=== PATIENT | male | born 1955 | race Caucasian/White ===

== ENCOUNTER 2018-09-17 14:10 | Inpatient (IN) | payer MEDICAID ==
[2018-09-17] MEDS ORDERED: Piperacillin/Tazobactam 3.375 GM in Sodium Chloride 0.9% 100 ML IV ONE (14:45)
[2018-09-17] MEDS: HYDROmorphone 1 MG/ML Syringe IVPUSH PRN ×2 (15:18→19:53)
[2018-09-17] MEDS: Acetaminophen/HYDROcodone 325-5 MG Tab PO PRN (15:19)
[2018-09-17 15:33] LABS: CHLORIDE,CL 96 mmol/L (98-107); SODIUM,NA 133 mmol/L (136-145)
[2018-09-17 15:39] LABS: ANION GAP 19.4 mmol/L (10-20)
[2018-09-17] MEDS ORDERED: Iopamidol 612 MG/ML 100 ML Bottle IVPUSH ONE (16:18)
[2018-09-17] MEDS: Insulin Lispro 100 Unit/ML 3 ML KwikPen SUBCUT SCH ×2 (16:21→17:18)
--- NOTE | 2018-09-17 18:37 | CT ---
[id number] CT/CTA Lower Extremity Left Exam: CTA Lower Extremity Left Clinical Data: CELLULITIS. POSSIBLE OSTEOMYELITIS. POSSIBLE NECROTIZING FASCIITIS COMPARISON: NO PREVIOUS SIMILAR EXAM IS AVAILABLE FINDINGS: There is evidence of diffuse soft tissue subcutaneous edema. There is no abscess. There is no imaging evidence of necrotizing fasciitis or osteomyelitis. There is no evidence also of high-grade arterial abnormality in the left lower extremity. The exam was limited to the left lower extremity not including the right side. IMPRESSION: CELLULITIS ONLY. NO ABSCESS. NO IMAGING EVIDENCE OF OSTEOMYELITIS NO ACUTE ARTERIAL ABNORMALITY. POSSIBILITY OF OSTEOMA IS NOT EXCLUDED ON IMAGING ALONE. David Adams MD 09/17/18 [id number] Thank you for allowing us to participate in the care of your patient.
[2018-09-17] MEDS: VANCOMYCIN IV SCH (19:00)
[2018-09-17] MEDS: SODIUM CHLORIDE 0.9% IV SCH (19:00)
[2018-09-17] MEDS: Insulin Glargine,Human Rec. Analog 100 Units/ML 3 ML Pen SUBCUT SCH (20:03)
[2018-09-17] MEDS ORDERED: Lactated Ringers 1,000 ML IV SCH (20:30)
[2018-09-17] MEDS: Piperacillin/Tazobactam 3.375 GM in Sodium Chloride 0.9% 100 ML IV SCH (21:16)
[2018-09-18] MEDS: Ondansetron 4 MG/2 ML SDV IV PRN ×2 (00:18→11:24)
[2018-09-18] MEDS: Acetaminophen 325 MG Tab PO PRN (01:31)
[2018-09-18] MEDS: Piperacillin/Tazobactam 3.375 GM in Sodium Chloride 0.9% 100 ML IV SCH ×3 (05:06→21:16)
[2018-09-18] MEDS: HYDROmorphone 1 MG/ML Syringe IVPUSH PRN ×4 (05:24→23:01)
[2018-09-18] MEDS: SODIUM CHLORIDE 0.9% IV SCH ×2 (06:46→18:41)
[2018-09-18] MEDS: VANCOMYCIN IV SCH ×2 (06:46→18:41)
[2018-09-18 07:04] LABS: ANION GAP 15.6 mmol/L (10-20); CHLORIDE,CL 99 mmol/L (98-107); SODIUM,NA 134 mmol/L (136-145)
[2018-09-18] MEDS: Acetaminophen/HYDROcodone 325-5 MG Tab PO PRN (08:03)
[2018-09-18] MEDS: Loratadine 10 MG Tab PO SCH (08:03)
[2018-09-18] MEDS: Insulin Lispro 100 Unit/ML 3 ML KwikPen SUBCUT SCH ×5 (08:03→20:25)
[2018-09-18] MEDS: Aspirin 81 MG Tab.EC PO SCH (08:03)
[2018-09-18] MEDS: Lisinopril 5 MG Tab PO SCH (08:03)
[2018-09-18] MEDS: Insulin Glargine,Human Rec. Analog 100 Units/ML 3 ML Pen SUBCUT SCH ×2 (08:04→23:00)
[2018-09-18] MEDS ORDERED: Acetaminophen/HYDROcodone 325-10 MG Tab PO PRN (08:35)
--- NOTE | 2018-09-18 10:05 | PCM.HP ---
H&P History of Present Illness - General Date of Service: 09/17/18 Admit Problem/Dx: Admission Diagnosis/Problem Admission Diagnosis/Problem Cellulitis Source of Information: Patient, Old Records - History of Present Illness Initial Comments - Free Text/Narative: Cellulitis of left lower extremity Type 1 DM with polyneuropathy Seizures LRINE Score for Necrotizing Soft Tissue Infection from [employer] on 09/17/2018 RESULT SUMMARY: 8 points Risk for Necrotizing Soft Tissue Infection. Scores of 8 had a PPV of 93.4% for NSTIs. Work-up as above INPUTS: C-reactive protein > 4 = ?15 mg/dL (150 mg/L) White blood cell count (x10,000/L) > 0 = <15 Hemoglobin (g/dL) > 1 = 11-13.5 Sodium (mEq/L) > 2 = <135 Creatinine > 0 = ?1.6 mg/dL (141 mol/L) Glucose > 1 = >180 mg/dL (10 mmol/L) Plan:Moderately severe cellulitis in insulin-dependent diabetic. Appears to be worsening after 24 hours of Rocephin. I recommend inpatient care for broadening antibiotics and pain control along with monitoring sugars and fluid status. He is having some systemic symptoms, vital signs otherwise not grossly septic. Admit for empiric vanc and zoysn while BC pending. Start IV LR. Lovenox prophylaixs. CT leg given higher risk soft tissue score but CK, lactate normal and nothing grossly necrotic by exam. Discussed case with PCP. Follow Up: No disposition on file. HPI / History / ROS 1 day REcheck cellulitis. Given rocephin x1. Patient in worse pain today than yesterday. LEFT lower leg. Sharp, burning pain. Pt feels nauseated but no vomiting. Some chills but no abdullahi fevers. Sugars around 200, DM1. He states leg had been swollen and red for the past week prior to yesterday. Denies any recent injury or breaks in the skin that he knows of. He describes an injury where he hit it eight months ago. Nonsmoker. Family history is fairly benign. No known drug allergies. No recent antibiotics besides above Rocephin. Medications w MedicationsPriortoVisit w Outpatient Medications Prior to Visit Medication Sig Dispense Refill HYDROcodone-acetaminophen (NORCO) 5-325 mg tablet Take 1-2 tablets by mouth every 6 hours as needed for severe pain 4 tablet 0 carBAMazepine (TEGRETOL XR) 400 mg SR tablet (12 hr) TAKE 1 TABLET (400 MG TOTAL) BY MOUTH EVERY NIGHT AT BEDTIME 90 tablet 4 insulin lispro (HUMALOG) subcutaneous injection (vial) INJECT 22 UNITS SUBCUTANEOUSLY 2 TIMES A DAY WITH MEALS 2 vial 11 lisinopril (PRINIVIL, ZESTRIL) 5 mg tablet TAKE 1 TABLET BY MOUTH EACH EVENING (Patient taking differently: take 0.5 tab daily) 90 tablet 3 B-D INS SYR ULTRAFINE .3CC/30G 30G X 1/2" 0.3 ML USE DIRECTED 4 TIMES A DAY WITH INSULIN INJECTIONS E11.9 300 syringe 4 LANTUS subcutaneous injection (vial) INJECT 22 UNITS SUBCUTANEOUSLY 2 TIMES A DAY 10 mL 11 blood glucose test strip (GIUSEPPE CONTOUR NEXT) STRP Use to test blood sugar four times a day DX: E 10.42 Insulin Dependent 100 each 11 lancets (MICROLET) Use to test blood sugar four times a day DX: E 10.42 Insulin Dependent 1 box 0 aspirin 81 mg enteric coated tablet Take 1 tablet (81 mg) by mouth 1 time per day 30 tablet 0 cetirizine (ZYRTEC) 10 mg tablet Take 10 mg by mouth 1 time per day No facility-administered medications prior to visit. Allergies No Known Allergies Problem List w w w Patient Active Problem List l Diagnosis w w Type 1 DM with polyneuropathy w w Major depressive disorder w w Seizures w w Hypertension w w Encounter for long-term (current) use of other medications w w Allergic rhinitis w w Diabetic neuropathy w w Plantar fasciitis of left foot w w Herniation of cervical intervertebral disc with radiculopathy w w Cervical spondylosis w w Radiculopathy of arm w w Cervical stenosis of spinal canal w w Cervical radiculopathy at C8 w w DDD (degenerative disc disease), cervical w w Cervical radiculopathy w w S/P cervical spinal fusion w w Refusal of statin medication at discharge w w Ulnar neuropathy of left upper extremity Medical/Surgical/Family/Social History w PastMedicalHistory w Past Medical History: Diagnosis Date Allergic state DDD (degenerative disc disease), cervical Diabetes mellitus (HCC) Hypertension Plantar fasciitis of left foot Seizures w PastSurgicalHistory w Past Surgical History: Procedure Laterality Date CERVICAL FUSION N/A 08/03/2016 Procedure: C6-T1 ANTERIOR CERVICAL DISCECTOMY &FUSION;; Surgeon: Francisco J Webber MD NECK SURGERY 2005 SURGERY removal of a mass in the mid back done at [facility] w FamilyHistory w Family History Problem Relation Age of Onset Chronic Obstructive Pulmonary Disease Father Negative Sister Not otherwise listed - Cancer Sister OPERATIONS SUPPORT REPRESENTATIVE Negative Half Sister w SocialHistory w Social History Socioeconomic History Marital status: Spouse name: Not on file Number of children: 1 Years of education: Not on file Highest education level: Not on file Occupational History 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 Fever:? HENT: Negative fortrouble swallowing. Respiratory: Positive forcough. Negative forshortness of breath. Cardiovascular: Negative forchest pain. Gastrointestinal: Positive fornausea. Negative forabdominal pain,blood in stool,constipationand diarrhea. Endocrine: Negative forpolydipsia,polyphagiaand polyuria. Genitourinary: Negative fordecreased urine volumeand dysuria. Physical / Results BP 150/66 Pulse 86 Temp 99.5 F (37.5 C) (Tympanic) Wt 103 kg (227 lb) SpO2 98% BMI 30.79 kg/m2|| Physical Exam Constitutional: He appearswell-developedand well-nourished.No distress. HENT: Mouth/Throat:Oropharynx is clear and moist. Cardiovascular:Normal rateand regular rhythm. Pulmonary/Chest:Effort normaland breath sounds normal. Abdominal:Soft. Musculoskeletal: Diffuse erythema warmth and swelling and tenderness that extends from the medial ankle up to the anterior haider just below the knee. Has not extended beyond boundaries from yesterday. It is not hard. There are no bullae seen. At the lateral portion above the ankle there is a 1 inch open area was some clear serous drainage. No pustules appreciated. He can move it his ankle and toes without any gross discomfort. Skin: He isdiaphoretic. There ispallor. Left Lower Leg Pain Score (Numeric/FACES): 5 - Related Data Allergies/Adverse Reactions: Allergies Allergy/AdvReac Type Severity Reaction Status Date / Time No Known Drug Allergies Allergy Other Verified 04/14/15 20:47 Home Medications: Home Meds Insulin Glarg,Human.Rec.Analog [LantUS] 22 units SQ BID 03/18/15 [History] Insulin Lispro [Humalog] 22 units SUBCUT BID 03/18/15 [History] Lisinopril [Prinivil] 5 mg PO DAILY 03/18/15 [History] carBAMazepine [Carbamazepine ER] 400 mg PO DAILY 03/18/15 [History] Hydrocodone/Acetaminophen [Hydrocodon-Acetaminophn 10-325] 1 - 2 each PO Q6H PRN 04/14/15 [History] Aspirin [Ecotrin] 81 mg PO DAILY 09/17/18 [History] Cetirizine [ZyrTEC] 1 tab PO DAILY 09/17/18 [History] Past Medical History HEENT History: Reports: Allergic Rhinitis Cardiovascular History: Reports: Hypertension Musculoskeletal History: Reports: Back Pain, Chronic, Other (See Below) Other Musculoskeletal History: Plantar fasciitis of left foot Neurological History: Reports: Seizure, Other (See Below) Other Neuro History: Radiculopathy at C8. S/P spinal fusion. Ulnar neuropathy of LUE. Radiculopathy of arm. Cervical spondylosis Psychiatric History: Reports: Other (See Below) Other Psychiatric History: Major Depressive Disorder Endocrine/Metabolic History: Reports: Diabetes, Type I, Obesity/BMI 30+ - Infectious Disease History Infectious Disease History: Reports: Chicken Pox - Past Surgical History Cardiovascular Surgical History: Reports: None Endocrine Surgical History: Reports: None Neurological Surgical History: Reports: Spinal Fusion Social & Family History - Family History Family Medical History: Noncontributory - Tobacco Use Smoking Status *Q: Never Smoker Second Hand Smoke Exposure: No - Caffeine Use Caffeine Use: Reports: Coffee - Recreational Drug Use Recreational Drug Use: No H&P Review of Systems - Review of Systems: Review Of Systems: See Below Exam - Exam Exam: See Below - Vital Signs Vital Signs: Last Vital Signs Temp 38.1 C 09/18/18 05:11 Pulse 85 09/18/18 05:11 Resp 18 09/18/18 05:11 BP 141/77 H 09/18/18 08:03 Pulse Ox 95 09/18/18 05:11 Weight: 101.69 kg - Patient Data Lab Results Last 24 hrs: Laboratory Results - last 24 hr 09/17/18 09/17/18 09/17/18 Range/Units 14:50 14:50 14:50 WBC 14.4 H (4.0-10.0) x10^3/uL RBC 3.97 L (4.5-6.0) x10^6/uL Hgb 13.2 L (14.0-18.0) g/dL Hct 38.3 L (40.0-52.0) % MCV 96.5 H (78.0-93.0) fL MCH 33.2 H (26.0-32.0) pg MCHC 34.5 (32.0-36.0) g/dL RDW Coeff of Alex 11.4 (10.0-15.0) % Plt Count 371 (130-400) x10^3/uL Neut % (Auto) 82.5 H (50.0-80.0) % Lymph % (Auto) 9.5 L (25.0-50.0) % [place] % (Auto) 7.5 (2.0-11.0) % Eos % (Auto) 0.3 (0.0-4.0) % Baso % (Auto) 0.2 (0.2-1.2) % Sodium 133 L (136-145) mmol/L Potassium 4.4 (3.5-5.1) mmol/L Chloride 96 L (98-107) mmol/L Carbon Dioxide 22 (21-32) mmol/L Anion Gap 19.4 (10-20) mmol/L BUN 15 (7-18) mg/dL Creatinine 0.9 (0.70-1.30) mg/dL Est Cr Clr Drug Dosing 94.60 mL/min Estimated GFR (MDRD) > 60 Glucose 334 H (74-106) mg/dL POC Glucose (74-106) mg/dL Lactic Acid 1.7 (0.4-2.0) mmol/L Calcium 8.9 (8.5-10.1) mg/dL Corrected Calcium 10.18 H (8.5-10.1) mg/dL Total Bilirubin 0.8 (0.2-1.0) mg/dL AST 64 H (15-37) U/L ALT 189 H (16-63) U/L Alkaline Phosphatase 225 H (46-116) U/L Creatine Kinase 96 (39-308) U/L C-Reactive Protein 21.7 H (<=0.9) mg/dL Total Protein 6.6 (6.4-8.2) g/dL Albumin 2.4 L (3.4-5.0) g/dL Globulin 4.2 Albumin/Globulin Ratio 0.57 09/17/18 09/17/18 09/18/18 Range/Units 15:37 19:57 06:23 WBC 14.1 H (4.0-10.0) x10^3/uL RBC 3.84 L (4.5-6.0) x10^6/uL Hgb 12.9 L (14.0-18.0) g/dL Hct 37.6 L (40.0-52.0) % MCV 97.9 H (78.0-93.0) fL MCH 33.6 H (26.0-32.0) pg MCHC 34.3 (32.0-36.0) g/dL RDW Coeff of Alex 11.3 (10.0-15.0) % Plt Count 371 (130-400) x10^3/uL Neut % (Auto) 81.2 H (50.0-80.0) % Lymph % (Auto) 10.1 L (25.0-50.0) % [place] % (Auto) 7.9 (2.0-11.0) % Eos % (Auto) 0.6 (0.0-4.0) % Baso % (Auto) 0.2 (0.2-1.2) % Sodium (136-145) mmol/L Potassium (3.5-5.1) mmol/L Chloride (98-107) mmol/L Carbon Dioxide (21-32) mmol/L Anion Gap (10-20) mmol/L BUN (7-18) mg/dL Creatinine (0.70-1.30) mg/dL Est Cr Clr Drug Dosing mL/min Estimated GFR (MDRD) Glucose (74-106) mg/dL POC Glucose 327 H 387 H (74-106) mg/dL Lactic Acid (0.4-2.0) mmol/L Calcium (8.5-10.1) mg/dL Corrected Calcium (8.5-10.1) mg/dL Total Bilirubin (0.2-1.0) mg/dL AST (15-37) U/L ALT (16-63) U/L Alkaline Phosphatase (46-116) U/L Creatine Kinase (39-308) U/L C-Reactive Protein (<=0.9) mg/dL Total Protein (6.4-8.2) g/dL Albumin (3.4-5.0) g/dL Globulin Albumin/Globulin Ratio 09/18/18 Range/Units 06:23 WBC (4.0-10.0) x10^3/uL RBC (4.5-6.0) x10^6/uL Hgb (14.0-18.0) g/dL Hct (40.0-52.0) % MCV (78.0-93.0) fL MCH (26.0-32.0) pg MCHC (32.0-36.0) g/dL RDW Coeff of Alex (10.0-15.0) % Plt Count (130-400) x10^3/uL Neut % (Auto) (50.0-80.0) % Lymph % (Auto) (25.0-50.0) % [place] % (Auto) (2.0-11.0) % Eos % (Auto) (0.0-4.0) % Baso % (Auto) (0.2-1.2) % Sodium 134 L (136-145) mmol/L Potassium 4.6 (3.5-5.1) mmol/L Chloride 99 (98-107) mmol/L Carbon Dioxide 24 (21-32) mmol/L Anion Gap 15.6 (10-20) mmol/L BUN 16 (7-18) mg/dL Creatinine 1.0 (0.70-1.30) mg/dL Est Cr Clr Drug Dosing 85.14 mL/min Estimated GFR (MDRD) > 60 Glucose 311 H (74-106) mg/dL POC Glucose (74-106) mg/dL Lactic Acid (0.4-2.0) mmol/L Calcium 8.5 (8.5-10.1) mg/dL Corrected Calcium 9.94 (8.5-10.1) mg/dL Total Bilirubin 0.6 (0.2-1.0) mg/dL AST 29 (15-37) U/L ALT 139 H (16-63) U/L Alkaline Phosphatase 194 H (46-116) U/L Creatine Kinase (39-308) U/L C-Reactive Protein (<=0.9) mg/dL Total Protein 6.4 (6.4-8.2) g/dL Albumin 2.2 L (3.4-5.0) g/dL Globulin 4.2 Albumin/Globulin Ratio 0.52 Result Diagrams: 09/18/18 06:23 09/18/18 06:23 Problem List Initiated/Reviewed/Updated: Yes Orders Last 24hrs: Active Orders 24 hr Category Date Time Status Admission Status [Patient Status] [ADT] Routine ADT 09/17/18 14:13 Active Patient Status [ADT] Routine ADT 09/17/18 14:31 Active Blood Glucose Check, Bedside [RC] 07,11,17,20 Care 09/17/18 14:31 Active Dietary Supplements [RC] BIDMEALS Care 09/17/18 14:38 Active Oxygen Therapy [RC] PRN Care 09/17/18 14:31 Active Up With Assistance [RC] 08,20 Care 09/17/18 14:31 Active Vital Signs [RC] 06,10,14,18,22,02 Care 09/17/18 14:31 Active [place] [employer] Diet [DIET] Diet 09/17/18 Dinner Active Chest 1V Frontal [CR] Routine Exams 09/18/18 08:39 Taken CBC WITH AUTO DIFF [HEME] AM Lab 09/19/18 05:15 Ordered COMPREHENSIVE METABOLIC PN,CMP [CHEM] AM Lab 09/19/18 05:15 Ordered CULTURE BLOOD [BC] Stat Lab 09/17/18 14:50 Received CULTURE BLOOD [BC] Stat Lab 09/17/18 14:57 Received CULTURE WOUND [RM] Routine Lab 09/18/18 08:33 Received VANCOMYCIN TROUGH [CHEM] Routine Lab 09/19/18 06:00 Ordered Acetaminophen [Tylenol] Med 09/17/18 14:31 Active 650 mg PO Q4H PRN Acetaminophen/HYDROcodone [Senoia 325-10 MG] Med 09/18/18 08:35 Active 1 tab PO Q4H PRN Aspirin [Halfprin] Med 09/18/18 08:00 Active 81 mg PO DAILY Docusate Sodium/Sennosides [Senna Plus] Med 09/18/18 08:20 Active 1 tab PO BID PRN Enoxaparin [Lovenox] Med 09/18/18 20:00 Active 40 mg SUBCUT BEDTIME HYDROmorphone [Dilaudid] Med 09/18/18 08:34 Active 1 mg IVPUSH Q2H PRN Insulin Glarg,Human.Rec.Analog [LantUS Solostar] Med 09/17/18 20:00 Active 22 units SUBCUT BID Insulin Lispro [HumaLOG] Med 09/17/18 18:00 Active 22 unit SUBCUT BIDMEALS Insulin Lispro [HumaLOG] Med 09/18/18 08:35 Active 5 unit SUBCUT TIDMEALS Lisinopril [Prinivil] Med 09/18/18 08:00 Active 5 mg PO DAILY Loratadine [Claritin] Med 09/18/18 08:00 Active 10 mg PO DAILY Ondansetron [Zofran] Med 09/17/18 14:31 Active 4 mg IV Q6H PRN Piperacillin/Tazobactam [Zosyn] 3.375 gm Med 09/17/18 21:00 Active Sodium Chloride 0.9% [Normal Saline] 100 ml IV Q8H Vancomycin 1,500 mg Med 09/17/18 19:00 Active Sodium Chloride 0.9% [Normal Saline] 250 ml IV Q12H carBAMazepine [TEGretol XR] Med 09/18/18 20:00 Active 400 mg PO BEDTIME Blood Culture x2 Reflex Set [OM.PC] Stat Oth 09/17/18 14:31 Ordered Resuscitation Status Routine Resus Stat 09/17/18 14:31 Ordered Medication Orders Acetaminophen (Tylenol) 650 mg PO Q4H PRN PRN Reason: Pain (Mild 1-3)/fever Last Admin: 09/18/18 01:31 Dose: 650 mg Hydrocodone Bitart/Acetaminophen (Senoia 325-10 Mg) 1 tab PO Q4H PRN PRN Reason: Pain (moderate 4-6) Aspirin (Halfprin) 81 mg PO DAILY RUDI Last Admin: 09/18/18 08:03 Dose: 81 mg Carbamazepine (Tegretol Xr) 400 mg PO BEDTIME RUDI Enoxaparin Sodium (Lovenox) 40 mg SUBCUT BEDTIME RUDI Hydromorphone HCl (Dilaudid) 1 mg IVPUSH Q2H PRN PRN Reason: Pain (severe 7-10) Vancomycin HCl 1,500 mg/ (Sodium Chloride) 280 mls @ 167 mls/hr IV Q12H [facility] Last Admin: 09/18/18 06:46 Dose: 167 mls/hr Admin: 09/17/18 19:00 Dose: 167 mls/hr Piperacillin Sod/Tazobactam (Sod 3.375 gm/ Sodium Chloride) 100 mls @ 25 mls/ hr IV Q8H [facility] Last Admin: 09/18/18 05:06 Dose: 25 mls/hr Admin: 09/17/18 21:16 Dose: 25 mls/hr Insulin Glargine (Lantus Solostar) 22 units SUBCUT BID [facility] Last Admin: 09/18/18 08:04 Dose: 22 units Admin: 09/17/18 20:03 Dose: 22 units Insulin Human Lispro (Humalog) 22 unit SUBCUT BIDMEALS [facility] Last Admin: 09/18/18 08:03 Dose: 22 units Admin: 09/17/18 17:18 Dose: Admin: 09/17/18 16:21 Dose: 22 units Insulin Human Lispro (Humalog) 5 unit SUBCUT TIDMEALS [facility] Lisinopril (Prinivil) 5 mg PO DAILY [facility] Last Admin: 09/18/18 08:03 Dose: 5 mg Loratadine (Claritin) 10 mg PO DAILY [facility] Last Admin: 09/18/18 08:03 Dose: 10 mg Ondansetron HCl (Zofran) 4 mg IV Q6H PRN PRN Reason: Nausea/Vomiting Last Admin: 09/18/18 00:18 Dose: 4 mg Senna/Docusate Sodium (Senna Plus) 1 tab PO BID PRN PRN Reason: Constipation
--- NOTE | 2018-09-18 10:12 | CR ---
[id number] RAD/RAD Chest PA or AP 1V EXAM: SINGLE VIEW CHEST. INDICATION: COUGH COMPARISON: NO PREVIOUS SIMILAR EXAM IS AVAILABLE FINDINGS: The lungs are clear. The cardiomediastinal contour is mildly prominent. There appear to be right hilar lymph nodes. Surgical changes of the cervical spine are seen. There is minimal pleural thickening of the left costophrenic sulcus. IMPRESSION: NO PNEUMONIA OR EDEMA. David Adams MD 09/18/18 1011 Thank you for allowing us to participate in the care of your patient.
[2018-09-18] MEDS ORDERED: Insulin Lispro 100 Unit/ML 3 ML KwikPen SUBCUT ONE (11:36)
--- NOTE | 2018-09-18 11:52 | PN ---
Progress Note for TABATHA RUSH Date: 09/18/2018 Room #: [id number] SUBJECTIVE: Hospital day #2 on a 62-year-old admitted with severe cellulitis, leg infection, and fevers. Lactic acid was normal yesterday, and in the clinic, it had been mildly elevated on Sunday, but the patient got a shot of Rocephin and was going to try it at home but did not bulk picker his antibiotics. He is having severe pain despite 3 doses of 0.5 of Dilaudid overnight and hydrocodone. He rates it as a 9/10. His CK was normal on admission, white count 14,000. He has had 101.9 fever overnight, but now has been afebrile since about 5 a.m. He was 100.6 at that point. CK level was normal yesterday. CRP elevated at 21.7. He is a type 1 diabetic and his blood sugars have been in the 300s and normally they are not that high. He is normally well controlled. He otherwise has felt like he has had the flu for the last week and he has been coughing. He has been nauseated. He states he injured this leg last summer, but never had an infection and then all of a sudden in this last week it came on. OBJECTIVE: Vital Signs: His temperature this morning 98.9, pulse 84, blood pressure 130/69, respiratory rate 18, O2 of 95% on room air. General: He is in no acute distress. He is more disheveled than he normally would be in the clinic. Heart: Regular rate and rhythm. S1, S2 without murmur. Lungs: Lung sounds are clear to auscultation bilaterally without crackles or wheezes. Abdomen: Nondistended, nontender. Extremities: Warm and dry. The right leg is normal. The left leg is examined, does show red patches with serous drainage throughout. No abscess appreciated. The redness is mostly anteriorly spreading up to his knee. He has a few blisters on his foot, but no significant redness or warmth there. It is tender to palpation. LABORATORY DATA: Lab work again, white count 14.1, hemoglobin 12.9, platelets 371. Sodium 134, potassium 4.6, chloride 99, bicarb 24, BUN 16, creatinine 1, glucose 311. AST 29, normal, yesterday elevated; ALT down to 139; alkaline phosphatase 194, improving. Albumin 2.2. ASSESSMENT AND PLAN: 1. Severe skin and soft tissue infection to the left lower extremity in a patient with type [address] has already been performed. Clinically, he was getting worse initially but does not feel he has not gotten worse since he has been admitted to the hospital. It has been now less than 24 hours of IV antibiotics, coverage was expanded to vancomycin and Zosyn. We will add Clinda. We will continue with IV and oral pain control. 2. Type 1 diabetes with hyperglycemia due to infection. At this point, we will increase his insulin by 5 units with each meal. Continue q.i.d. Accu- Cheks and make adjustments as needed. The patient has been a type 1 diabetic for 50 years and will be involved in decisions to help guide his insulin. 3. History of seizure disorder. He has not had any recent seizures. 4. Sepsis. The patient clearly was meeting some criteria with his fevers and leukocytosis. However, his lactic had improved and he has not been worsening. PLAN: At this point, the patient will continue on acute cares with IV Zosyn and vancomycin. We did culture the wound to help guide antibiotics. We will continue with pain control. Questions answered. We did do a chest x-ray to rule out any pneumonia and that was normal. JOSSY: 09/18/2018 11:21:13 MODL: 09/18/2018 11:44:16 /[id number] ERIN
[2018-09-18] MEDS: Clindamycin Phosphate 900 MG in Sodium Chloride 0.9% 100 ML IV SCH ×2 (12:10→20:24)
[2018-09-18] MEDS ORDERED: Promethazine 12.5 MG in Sodium Chloride 0.9% 100 ML IV PRN (16:36)
[2018-09-18] MEDS: Enoxaparin 40 MG/0.4 ML Syringe SUBCUT SCH (22:16)
[2018-09-18] MEDS: carBAMazepine 100 MG Cap.ER PO SCH (22:59)
[2018-09-19] MEDS: Clindamycin Phosphate 900 MG in Sodium Chloride 0.9% 100 ML IV SCH ×3 (05:34→19:36)
[2018-09-19] MEDS: HYDROmorphone 1 MG/ML Syringe IVPUSH PRN ×6 (05:45→21:38)
[2018-09-19] MEDS: Piperacillin/Tazobactam 3.375 GM in Sodium Chloride 0.9% 100 ML IV SCH ×3 (06:17→21:38)
[2018-09-19 07:27] LABS: CHLORIDE,CL 97 mmol/L (98-107); SODIUM,NA 134 mmol/L (136-145)
[2018-09-19] MEDS: Loratadine 10 MG Tab PO SCH (07:39)
[2018-09-19] MEDS: Lisinopril 5 MG Tab PO SCH (07:39)
[2018-09-19] MEDS: Aspirin 81 MG Tab.EC PO SCH (07:39)
[2018-09-19] MEDS: Insulin Glargine,Human Rec. Analog 100 Units/ML 3 ML Pen SUBCUT SCH ×2 (07:41→19:49)
[2018-09-19 07:46] LABS: ANION GAP 18.1 mmol/L (10-20)
[2018-09-19] MEDS: Insulin Lispro 100 Unit/ML 3 ML KwikPen SUBCUT SCH ×3 (08:10→19:21)
[2018-09-19] MEDS ORDERED: Magnesium Hydroxide 400 MG/5 ML Susp 30 ML Cup PO ONE (08:31)
[2018-09-19] MEDS: SODIUM CHLORIDE 0.9% IV SCH ×2 (08:33→18:37)
[2018-09-19] MEDS: VANCOMYCIN IV SCH ×2 (08:33→18:37)
--- NOTE | 2018-09-19 09:14 | PN ---
Progress Note for TABATHA RUSH Date: 09/19/2018 Room #: [facility] SUBJECTIVE: Hospital day #3 on a 62-year-old admitted with a severe left lower extremity skin and soft tissue infection. CT was not showing any air. It was a severe cellulitis. There was no abscess. His pain was a 9 yesterday, today it is a 7.5 to 8. His IV did infiltrate, getting some Dilaudid this morning, so the dose had to be repeated. He got 3 mg of IV Dilaudid yesterday, but has not used any hydrocodone since yesterday morning. He has not had a bowel movement in several days. He has had a lot of nausea, but no Zofran since yesterday. He has been eating okay, but feels distended and would like to try something for his bowels. He has been afebrile now for 24 hours. T-max was 100.1 at 10 p.m. last night. His breathing has been good. He is still coughing, but does not feel short of breath. He is a type 1 diabetic, did not get his dose of Lantus last night because he was sleeping. However, blood sugars have improved from the 300s to 200s today. Does have massive swelling in that left leg with some pain in the popliteal space and posteriorly even now the cellulitis is all anteriorly, but he absolutely refuses an ultrasound for DVT today. OBJECTIVE: Vital Signs: Objectively, his temperature this morning 99.6, pulse 85, blood pressure 141/86, respiratory rate 18 and O2 of 95% on room air. General: He is in no acute distress. He is resting in bed, waiting to get another IV started. Heart: Regular rate and rhythm. S1, S2 without murmur. Lungs: Lungs sounds are clear to auscultation bilaterally without crackles or wheezes. Abdomen: Positive bowel sounds. It is distended, but nontender. Extremities: Warm and dry over the right leg and foot. No redness. No warmth. Left leg still swollen. Tenderness to palpation throughout, but the pain is not out of proportion to exam as yesterday. He has pain on the posterior calf and in the popliteal area, but no redness, no warmth, no swelling up in the thigh area. He does have a slight blister on his dorsal aspect of his foot, but no open sores there, but there is a skin tear like area over the left lateral calf. He denies any recent injury on that. No swimming. Mental Status: He is alert. He is orientated x3. LABORATORY WORK: Today, it does show him to have white count still 14.5, hemoglobin 12.5, and platelets 357. ESR down from 99 to 86. Sodium 134, potassium 4.1, chloride 97, bicarb 23, BUN 13, creatinine 0.9, glucose 204, calcium 8.4, ALT down to 102, and alkaline phosphatase down to 179. CRP down to 20 and albumin 2. Vancomycin trough is 12.5. ASSESSMENT AND PLAN: 1. Severe skin and soft tissue infection with cellulitis of the left lower extremity. On day #3, Zosyn and vancomycin. On day #4 of antibiotics, did get Rocephin through the clinic Sunday. Day #2, Clindamycin. We will continue with the same antibiotics. Keep the leg elevated to help with swelling. Continue local wound cares. 2. Type 1 diabetes with hyperglycemia due to infection. We are making an insulin adjustments to control blood sugars. 3. History of seizure disorder. He has not had any recent seizures. 4. Sepsis. Repeat lactic acids have been normal. PLAN: At this point, the patient will continue acute cares with IV antibiotics. Wound culture was performed. We will continue with pain control with Dilaudid for his constipation. We have ordered milk of Mag and we will schedule his senna, it was placed as p.r.n. but he never asked for any. We will repeat lab work and electrolytes in the morning. For DVT prophylaxis, he will continue on Lovenox. We will start incentive spirometry. MKA: 09/19/2018 08:38:39 MODL: 09/19/2018 09:06:42 /[id number]
[2018-09-19] MEDS ORDERED: Insulin Lispro 100 Unit/ML 3 ML KwikPen SUBCUT ONE (11:32)
[2018-09-19] MEDS: Ondansetron 4 MG/2 ML SDV IV PRN ×2 (15:18→19:34)
[2018-09-19] MEDS: Acetaminophen 325 MG Tab PO PRN (19:34)
[2018-09-19] MEDS: Enoxaparin 40 MG/0.4 ML Syringe SUBCUT SCH (19:34)
[2018-09-19] MEDS: carBAMazepine 100 MG Cap.ER PO SCH (19:35)
[2018-09-20] MEDS: HYDROmorphone 1 MG/ML Syringe IVPUSH PRN ×5 (03:07→19:30)
[2018-09-20] MEDS: Clindamycin Phosphate 900 MG in Sodium Chloride 0.9% 100 ML IV SCH (03:07)
[2018-09-20] MEDS: Piperacillin/Tazobactam 3.375 GM in Sodium Chloride 0.9% 100 ML IV SCH ×3 (04:04→21:32)
[2018-09-20] MEDS: Acetaminophen 325 MG Tab PO PRN (05:53)
[2018-09-20] MEDS: VANCOMYCIN IV SCH ×2 (06:55→18:19)
[2018-09-20] MEDS: SODIUM CHLORIDE 0.9% IV SCH ×2 (06:55→18:19)
[2018-09-20] MEDS: Aspirin 81 MG Tab.EC PO SCH (08:46)
[2018-09-20] MEDS: Lisinopril 5 MG Tab PO SCH (08:47)
[2018-09-20] MEDS: Loratadine 10 MG Tab PO SCH (08:47)
[2018-09-20] MEDS: Insulin Glargine,Human Rec. Analog 100 Units/ML 3 ML Pen SUBCUT SCH ×2 (08:48→19:27)
[2018-09-20] MEDS: Insulin Lispro 100 Unit/ML 3 ML KwikPen SUBCUT SCH ×2 (08:50→17:27)
[2018-09-20] MEDS: Silver Sulfadiazine 1% Crm 50 GM Tube TOP SCH ×2 (10:08→19:31)
[2018-09-20] MEDS ORDERED: Insulin Lispro 100 Unit/ML 3 ML KwikPen SUBCUT ONE (12:42)
--- NOTE | 2018-09-20 13:32 | PN ---
Progress Note for TABATHA RUSH Date: 09/20/2018 Room #: [facility]205 SUBJECTIVE: This is hospital day #4 on a 62-year-old, admitted with a severe skin and soft tissue infection to the left lower extremity. The pain was 9/10 earlier this week, it is improving down to a 5. He says it feels pretty good right now. He had just received some IV hydromorphone 1 mg which he did receive 5 times yesterday with good relief. He otherwise has not had any trouble breathing. No chest pain. He did unfortunately spike a fever up to 101.9 at 6 p.m. on the 4th. His last temperature was 101.3 at 7:30. He has been afebrile since with 99.4 at 6 a.m. and currently 97.9. He otherwise has been draining more from the wounds. He was able to get up with a walker and therapy yesterday. He is having some loose stools now, but did get some magnesium and stool softeners yesterday. OBJECTIVE: Vital Signs: He had a temperature again 97.9, pulse 81, blood pressure 148/77, respiratory rate 18, O2 of 94% on room air. General: He is in no acute distress. Heart: Regular rate and rhythm. S1, S2 without murmur. Lungs: Sounds were clear to auscultation bilaterally without crackles or wheezes. Abdomen: Has positive bowel sounds. Mildly distended but nontender. Extremities: Warm and dry over the right leg but the left leg does have 2+ pulse on the left with 1 blister on the dorsal aspect. He still has some redness, although it is fading and tenderness to the anterior haider, but no significant sore there. He has a large skin tear laterally, but it is not deep or tunneling. He has some serous drainage. Posteriorly, he still has some pain. He is able to move his ankle without significant increases in pain. Mental Status: He is alert. He is orientated x3. ASSESSMENT: 1. Severe skin and soft tissue infection with sepsis due to a left lower leg cellulitis. The patient clinically improving, although slowly. I did consult Infectious Disease in [place]. His culture just grew coagulase- negative Staph. They feel this is probably a strep with severe local reaction. Did feel like we could probably come off the Clindamycin at this point and continue with Zosyn and vancomycin. No surgical indications currently. We will repeat lab work in the morning. 2. Type 1 diabetes with hyperglycemia due to infection. He has missed some insulin due to not eating. At this point, we will adjust his insulin. He takes 22 units at home for breakfast, which is noon and supper. Therefore, I will give him 10 units in the morning to try to avoid hyperglycemia. He is also on his Lantus twice daily. 3. History of seizure disorder. This has been stable without recent seizures. PLAN: At this point, the patient will continue acute cares with IV vancomycin and Zosyn, now day #4, day #5 of antibiotics. He got Rocephin the first day. We will stop Clindamycin. We will repeat lab work in the morning. Vancomycin trough will be due Sunday. We will continue pain control with IV Dilaudid. He also has oral hydrocodone available. He is starting to feel in better and eat better. He is on yogurt for probiotic prophylaxis. Expect his condition to improve, but it is going to take more time. His hospital stay will be extended beyond the 96 hours, but there is no indication to transfer at this point to a higher level of care. He will continue Lovenox for DVT prophylaxis. MKA: 09/20/2018 12:51:23 MODL: 09/20/2018 13:23:41 /[id number]
[2018-09-20] MEDS: Ondansetron 4 MG/2 ML SDV IV PRN (16:09)
[2018-09-20] MEDS: Enoxaparin 40 MG/0.4 ML Syringe SUBCUT SCH (19:26)
[2018-09-20] MEDS: carBAMazepine 100 MG Cap.ER PO SCH (19:28)
[2018-09-21] MEDS: Ondansetron 4 MG/2 ML SDV IV PRN ×2 (00:47→06:51)
[2018-09-21] MEDS: HYDROmorphone 1 MG/ML Syringe IVPUSH PRN ×4 (00:50→23:41)
[2018-09-21] MEDS: Piperacillin/Tazobactam 3.375 GM in Sodium Chloride 0.9% 100 ML IV SCH ×3 (04:25→21:51)
[2018-09-21] MEDS: SODIUM CHLORIDE 0.9% IV SCH ×2 (06:34→18:09)
[2018-09-21] MEDS: VANCOMYCIN IV SCH ×2 (06:34→18:09)
[2018-09-21] MEDS: Aspirin 81 MG Tab.EC PO SCH (07:32)
[2018-09-21] MEDS: Lisinopril 5 MG Tab PO SCH (07:32)
[2018-09-21] MEDS: Loratadine 10 MG Tab PO SCH (07:32)
[2018-09-21] MEDS: Insulin Glargine,Human Rec. Analog 100 Units/ML 3 ML Pen SUBCUT SCH ×2 (07:33→19:39)
[2018-09-21] MEDS: Insulin Lispro 100 Unit/ML 3 ML KwikPen SUBCUT SCH ×3 (07:34→18:10)
[2018-09-21] MEDS: Silver Sulfadiazine 1% Crm 50 GM Tube TOP SCH ×2 (07:56→19:45)
[2018-09-21 08:56] LABS: CHLORIDE,CL 105 mmol/L (98-107); SODIUM,NA 144 mmol/L (136-145)
[2018-09-21 09:20] LABS: ANION GAP 17.4 mmol/L (10-20)
[2018-09-21] MEDS: Enoxaparin 40 MG/0.4 ML Syringe SUBCUT SCH (19:41)
[2018-09-21] MEDS: carBAMazepine 100 MG Cap.ER PO SCH (19:44)
[2018-09-22] MEDS: Piperacillin/Tazobactam 3.375 GM in Sodium Chloride 0.9% 100 ML IV SCH ×3 (04:22→20:43)
[2018-09-22] MEDS ORDERED: Polyethylene Glycol 3350 Powder 17 GM Packet PO ONE (05:43)
--- NOTE | 2018-09-22 05:48 | PCM.PN ---
- General Info Date of Service: 09/21/18 Admission Dx/Problem (Free Text): Admission Diagnosis/Problem Admission Diagnosis/Problem Cellulitis Subjective Update: Patient was admitted to the hospital 5 days ago for lower left leg cellulitis/ sepsis. Patient has been slowly improving over the course of the last 5 days. Today patient states that his pain is under control for the most part he is still needing when necessary's. However he feels that they have decrease. He also feels that he has been able to get up and move a bit more especially with his walker. He has been able to ambulate to the bathroom with his walker. Over the course of the night he had no concerns or complaints regarding his medical concern. His main issue and concern today is with the meals. He does not like the current meal plan he is on. His other concern is that he is now constipated and does have some mild distention of his abdomen and he is concerned with that. When he was admitted to the hospital he was having some loose stools. Functional Status: Reports: Pain Controlled, Tolerating Diet, Ambulating (to the bathroom ) - Review of Systems General: Reports: No Symptoms HEENT: Reports: No Symptoms Pulmonary: Reports: No Symptoms Cardiovascular: Reports: No Symptoms Gastrointestinal: Reports: No Symptoms Genitourinary: Reports: No Symptoms Musculoskeletal: Reports: No Symptoms Skin: Reports: Other Neurological: Reports: No Symptoms Psychiatric: Reports: No Symptoms - Patient Data Vitals - Most Recent: Last Vital Signs Temp 36.9 C 09/22/18 01:19 Pulse 81 09/22/18 01:19 Resp 14 09/22/18 01:19 BP 135/85 09/22/18 01:19 Pulse Ox 94 L 09/22/18 01:19 Weight - Most Recent: 101.69 kg I&O - Last 24 Hours: Intake & Output 09/21/18 09/21/18 09/22/18 14:59 22:59 06:59 Intake Total 700 480 100 Output Total 600 250 Balance 100 230 100 Lab Results Last 24 Hours: Laboratory Results - last 24 hr 09/21/18 09/21/18 09/21/18 Range/Units 06:32 07:35 07:35 WBC 8.1 (4.0-10.0) x10^3/uL RBC 3.58 L (4.5-6.0) x10^6/uL Hgb 11.9 L (14.0-18.0) g/dL Hct 35.6 L (40.0-52.0) % MCV 99.4 H (78.0-93.0) fL MCH 33.2 H (26.0-32.0) pg MCHC 33.4 (32.0-36.0) g/dL RDW Coeff of Alex 11.4 (10.0-15.0) % Plt Count 429 H (130-400) x10^3/uL Neut % (Auto) 75.1 (50.0-80.0) % Lymph % (Auto) 12.7 L (25.0-50.0) % [place] % (Auto) 9.9 (2.0-11.0) % Eos % (Auto) 2.1 (0.0-4.0) % Baso % (Auto) 0.2 (0.2-1.2) % Sodium 144 D (136-145) mmol/L Potassium 3.4 L (3.5-5.1) mmol/L Chloride 105 (98-107) mmol/L Carbon Dioxide 25 (21-32) mmol/L Anion Gap 17.4 (10-20) mmol/L BUN 8 (7-18) mg/dL Creatinine 1.1 (0.70-1.30) mg/dL Est Cr Clr Drug Dosing 77.40 mL/min Estimated GFR (MDRD) > 60 Glucose 99 (74-106) mg/dL POC Glucose 92 (74-106) mg/dL Calcium 8.2 L (8.5-10.1) mg/dL Corrected Calcium 9.96 (8.5-10.1) mg/dL Total Bilirubin 0.5 (0.2-1.0) mg/dL AST 69 H (15-37) U/L ALT 107 H (16-63) U/L Alkaline Phosphatase 216 H (46-116) U/L Total Protein 6.0 L (6.4-8.2) g/dL Albumin 1.8 L (3.4-5.0) g/dL Globulin 4.2 Albumin/Globulin Ratio 0.43 09/21/18 09/21/18 09/21/18 Range/Units 11:09 16:13 19:33 WBC (4.0-10.0) x10^3/uL RBC (4.5-6.0) x10^6/uL Hgb (14.0-18.0) g/dL Hct (40.0-52.0) % MCV (78.0-93.0) fL MCH (26.0-32.0) pg MCHC (32.0-36.0) g/dL RDW Coeff of Alex (10.0-15.0) % Plt Count (130-400) x10^3/uL Neut % (Auto) (50.0-80.0) % Lymph % (Auto) (25.0-50.0) % [place] % (Auto) (2.0-11.0) % Eos % (Auto) (0.0-4.0) % Baso % (Auto) (0.2-1.2) % Sodium (136-145) mmol/L Potassium (3.5-5.1) mmol/L Chloride (98-107) mmol/L Carbon Dioxide (21-32) mmol/L Anion Gap (10-20) mmol/L BUN (7-18) mg/dL Creatinine (0.70-1.30) mg/dL Est Cr Clr Drug Dosing mL/min Estimated GFR (MDRD) Glucose (74-106) mg/dL POC Glucose 127 H 123 H 178 H (74-106) mg/dL Calcium (8.5-10.1) mg/dL Corrected Calcium (8.5-10.1) mg/dL Total Bilirubin (0.2-1.0) mg/dL AST (15-37) U/L ALT (16-63) U/L Alkaline Phosphatase (46-116) U/L Total Protein (6.4-8.2) g/dL Albumin (3.4-5.0) g/dL Globulin Albumin/Globulin Ratio Pineda Results Last 24 Hours: Microbiology 09/17/18 14:57 Aerobic Blood Culture - Preliminary Blood - Venous - Lab Draw NO GROWTH AFTER 4 DAYS Anaerobic Blood Culture - Preliminary NO GROWTH AFTER 4 DAYS 09/17/18 14:50 Aerobic Blood Culture - Preliminary Blood - Venous NO GROWTH AFTER 4 DAYS Anaerobic Blood Culture - Preliminary NO GROWTH AFTER 4 DAYS 09/18/18 08:33 Wound Culture - Preliminary Foot, Left Staphylococcus Coagulase Neg Med Orders - Current: Current Medications Acetaminophen (Tylenol) 650 mg PO Q4H PRN PRN Reason: Pain (Mild 1-3)/fever Last Admin: 09/20/18 05:53 Dose: 650 mg Hydrocodone Bitart/Acetaminophen ([place] 325-10 Mg) 1 tab PO Q4H PRN PRN Reason: Pain (moderate 4-6) Aspirin (Halfprin) 81 mg PO DAILY [facility] Last Admin: 09/21/18 07:32 Dose: 81 mg Carbamazepine (Tegretol Xr) 400 mg PO BEDTIME [facility] Last Admin: 09/21/18 19:44 Dose: 400 mg Enoxaparin Sodium (Lovenox) 40 mg SUBCUT BEDTIME [facility] Last Admin: 09/21/18 19:41 Dose: 40 mg Hydromorphone HCl (Dilaudid) 1 mg IVPUSH Q2H PRN PRN Reason: Pain (severe 7-10) Last Admin: 09/21/18 23:41 Dose: 1 mg Vancomycin HCl 1,500 mg/ (Sodium Chloride) 280 mls @ 167 mls/hr IV Q12H [facility] Last Admin: 09/21/18 18:09 Dose: 167 mls/hr Piperacillin Sod/Tazobactam (Sod 3.375 gm/ Sodium Chloride) 100 mls @ 25 mls/ hr IV Q8H [facility] Last Admin: 09/22/18 04:22 Dose: 25 mls/hr Promethazine HCl 12.5 mg/ (Sodium Chloride) 100.5 mls @ 400 mls/hr IV QID PRN PRN Reason: Nausea Last Admin: 09/18/18 17:07 Dose: 400 mls/hr Insulin Glargine (Lantus Solostar) 22 units SUBCUT BID [facility] Last Admin: 09/21/18 19:39 Dose: 22 units Insulin Human Lispro (Humalog) 10 unit SUBCUT DAILY [facility] Last Admin: 09/21/18 07:34 Dose: 10 units Insulin Human Lispro (Humalog) 22 unit SUBCUT BID@1200,1800 [facility] Last Admin: 09/21/18 18:10 Dose: 22 units Lisinopril (Prinivil) 5 mg PO DAILY [facility] Last Admin: 09/21/18 07:32 Dose: 5 mg Loratadine (Claritin) 10 mg PO DAILY [facility] Last Admin: 09/21/18 07:32 Dose: 10 mg Ondansetron HCl (Zofran) 4 mg IV Q4H PRN PRN Reason: Nausea/Vomiting Last Admin: 09/21/18 06:51 Dose: 4 mg Senna/Docusate Sodium (Senna Plus) 1 tab PO BID PRN PRN Reason: Constipation Silver Sulfadiazine (Silvadene 1% Cream 50 Gm) 0 gm TOP BID [facility] Last Admin: 09/21/18 19:45 Dose: 1 applic Vancomycin HCl (Pharmacy To Dose - Vancomycin) 1 dose .XX ASDIRECTED [facility] Discontinued Medications Hydrocodone Bitart/Acetaminophen (S[place]ell 325-5 Mg) 1 tab PO Q4H PRN PRN Reason: Pain (moderate 4-6) Last Admin: 09/18/18 08:03 Dose: 1 tab Hydromorphone HCl (Dilaudid) 0.5 mg IVPUSH Q2H PRN PRN Reason: Pain (severe 7-10) Last Admin: 09/18/18 05:24 Dose: 0.5 mg Piperacillin Sod/Tazobactam (Sod 3.375 gm/ Sodium Chloride) 100 mls @ 200 mls/ hr IV ONETIME ONE Stop: 09/17/18 15:14 Last Admin: 09/17/18 15:28 Dose: 200 mls/hr Lactated Ringer's (Ringers, Lactated) 1,000 mls @ 150 mls/hr IV ASDIRECTED [facility] Last Admin: 09/18/18 06:13 Dose: 150 mls/hr Clindamycin Phosphate 900 mg/ (Sodium Chloride) 106 mls @ 200 mls/hr IV Q8H [facility] Last Admin: 09/20/18 03:07 Dose: 200 mls/hr Insulin Human Lispro (Humalog) 22 unit SUBCUT BIDMEALS [facility] Last Admin: 09/20/18 08:50 Dose: 22 units Insulin Human Lispro (Humalog) 5 unit SUBCUT TIDMEALS [facility] Last Admin: 09/19/18 08:11 Dose: Not Given Insulin Human Lispro (Humalog) 15 unit SUBCUT ONETIME ONE Stop: 09/18/18 11:37 Last Admin: 09/18/18 12:12 Dose: 15 units Insulin Human Lispro (Humalog) 15 unit SUBCUT ONETIME ONE Stop: 09/19/18 11:33 Last Admin: 09/19/18 11:35 Dose: 15 units Insulin Human Lispro (Humalog) 10 unit SUBCUT ONETIME ONE Stop: 09/20/18 12:43 Last Admin: 09/20/18 12:55 Dose: 10 units Iopamidol (Isovue-300 (61%)) 100 ml IVPUSH ONETIME ONE Stop: 09/17/18 16:19 Last Admin: 09/17/18 17:06 Dose: 100 ml Magnesium Hydroxide (Milk Of Magnesia) 30 ml PO ONETIME ONE Stop: 09/19/18 08:32 Last Admin: 09/19/18 09:08 Dose: 30 ml Ondansetron HCl (Zofran) 4 mg IV Q6H PRN PRN Reason: Nausea/Vomiting Last Admin: 09/18/18 11:24 Dose: 4 mg Senna/Docusate Sodium (Senna Plus) 1 tab PO BID PRN PRN Reason: Constipation Senna/Docusate Sodium (Senna Plus) 1 tab PO BID RUDI Last Admin: 09/20/18 08:46 Dose: 1 tab - Exam General: Alert, Oriented HEENT: Pupils Equal, Pupils Reactive, EOMI, Mucous Membr. Moist/[place] Neck: Supple Lungs: Clear to Auscultation, Normal Respiratory Effort Cardiovascular: Regular Rate, Regular Rhythm GI/Abdominal Exam: Normal Bowel Sounds, Soft, Non-Tender, No Abnormal Bruit, Distended (mild) Back Exam: Normal Inspection, Full Range of Motion Extremities: Leg Pain, Increased Warmth, Redness, Other (left leg 1 blister on the dorsal aspect. redness below the knee with warmth noted. Serous drainage noted. ROM intact. CMS intact) Peripheral Pulses: 1+: Posterior Tibial (L), Dorsalis Pedis (L), 2+: Radial (L) , Radial (R), Posterior Tibial (R), Dorsalis Pedis (R) Skin: Warm, Dry, Intact Wound/Incisions: Dressing Dry and Intact, Drainage, Erythema Neurological: No New Focal Deficit Psy/Mental Status: Alert, Normal Affect - Problem List & Annotations (1) Diabetes mellitus type 1 SNOMED Code(s): 19854500 Code(s): E10.9 - TYPE 1 DIABETES MELLITUS WITHOUT COMPLICATIONS Status: Chronic Current Visit: Yes Qualifiers: Diabetes mellitus complication status: with hyperglycemia Qualified Code(s) : E10.65 - Type 1 diabetes mellitus with hyperglycemia (2) Cellulitis of left lower leg SNOMED Code(s): 842555248 Code(s): L03.116 - CELLULITIS OF LEFT LOWER LIMB Status: Acute Current Visit: No - Problem List Review Problem List Initiated/Reviewed/Updated: Yes - Assessment Assessment:: 1# Cellulitis and sepsis - Pt continues to improve with medical treatment - Continue with daily labs - Continue nursing dressing changes - Continue IV antibiotics 2# Type 1 diabetes with hyperglycemia - Sugar levels have decreased since admission - Continue with a diabetic meal plan (pt is very unsatisfied with meal plan and feels the food taste "terrible" "garbage" - Continue to monitor Blood sugars and adjust insulin as needed 3# History of Seizure disorder - no seizure activity -continue with Keppra to prevent seizures -continue to monitor - Plan Plan:: The patient continues to improve with IV antibiotics for his left lower leg cellulitis 1. Daily labs 2. Continue with Vancomycin and Zosyn 3. Continue BID dressing changes 4. Monitor and control pain 5. Will provide 1 time dose of MiraLAX to help with his constipation concerns 6. Continue DVT prophylaxis due to decrease in ability to ambulate frequently 7. All questions and concerns addressed
[2018-09-22] MEDS: VANCOMYCIN IV SCH ×2 (06:25→17:59)
[2018-09-22] MEDS: SODIUM CHLORIDE 0.9% IV SCH ×2 (06:25→17:59)
[2018-09-22] MEDS: Ondansetron 4 MG/2 ML SDV IV PRN (06:27)
[2018-09-22] MEDS: Lisinopril 5 MG Tab PO SCH (07:36)
[2018-09-22] MEDS: Insulin Lispro 100 Unit/ML 3 ML KwikPen SUBCUT SCH ×3 (07:37→16:59)
[2018-09-22] MEDS: Loratadine 10 MG Tab PO SCH (07:37)
[2018-09-22] MEDS: Aspirin 81 MG Tab.EC PO SCH (07:37)
[2018-09-22] MEDS: Silver Sulfadiazine 1% Crm 50 GM Tube TOP SCH ×2 (07:38→20:41)
[2018-09-22] MEDS: Insulin Glargine,Human Rec. Analog 100 Units/ML 3 ML Pen SUBCUT SCH ×2 (07:39→20:42)
[2018-09-22] MEDS ORDERED: Promethazine 25 MG/ML SDV IM PRN (09:02)
--- NOTE | 2018-09-22 11:09 | PCM.PN ---
- General Info Date of Service: 09/22/18 Admission Dx/Problem (Free Text): Admission Diagnosis/Problem Admission Diagnosis/Problem Cellulitis Subjective Update: Patient was admitted to the hospital 6 days ago for lower left leg cellulitis/ sepsis. Patient has been slowly improving over the course of the last 5 days. Today patient states that his pain is under control for the most part he is still needing when necessary's. However he feels that they have decrease. He also feels that he has been able to get up and move a bit more especially with his walker. He has been able to ambulate to the bathroom with his walker. Over the course of the night he had no concerns or complaints regarding his medical concern. This am he has been nauseated. He was given a prn Zofran with no relief a secondary IM and a gram antinausea medication was prescribed. He did not eat breakfast this arm for he has felt nauseated. He requested something for his bowels. He ended up refusing the PRN for he had a bowel movement. Pt is resting after getting the second dose of anti nausea medications. Functional Status: Reports: Pain Controlled, Urinating. Denies: Tolerating Diet (nauseated this am ) - Review of Systems General: Reports: No Symptoms HEENT: Reports: No Symptoms Pulmonary: Reports: No Symptoms Cardiovascular: Reports: No Symptoms Gastrointestinal: Reports: No Symptoms Musculoskeletal: Reports: Leg Pain (cellulitis left lower leg) Skin: Reports: No Symptoms Neurological: Reports: No Symptoms Psychiatric: Reports: No Symptoms - Patient Data Vitals - Most Recent: Last Vital Signs Temp 36.6 C 09/22/18 10:00 Pulse 81 09/22/18 10:00 Resp 20 09/22/18 05:47 BP 141/85 H 09/22/18 10:00 Pulse Ox 96 09/22/18 10:00 Weight - Most Recent: 101.69 kg I&O - Last 24 Hours: Intake & Output 09/21/18 09/22/18 09/22/18 22:59 06:59 14:59 Intake Total 480 1180 120 Output Total 250 1950 Balance 230 -770 120 Lab Results Last 24 Hours: Laboratory Results - last 24 hr 09/21/18 09/21/18 09/21/18 Range/Units 06:32 11:09 16:13 POC Glucose 92 127 H 123 H (74-106) mg/dL 09/21/18 Range/Units 19:33 POC Glucose 178 H (74-106) mg/dL [place] Results Last 24 Hours: Microbiology 09/18/18 08:33 Wound Culture - Final Foot, Left Staphylococcus Coagulase Neg 09/17/18 14:57 Aerobic Blood Culture - Preliminary Blood - Venous - Lab Draw NO GROWTH AFTER 4 DAYS Anaerobic Blood Culture - Preliminary NO GROWTH AFTER 4 DAYS 09/17/18 14:50 Aerobic Blood Culture - Preliminary Blood - Venous NO GROWTH AFTER 4 DAYS Anaerobic Blood Culture - Preliminary NO GROWTH AFTER 4 DAYS Med Orders - Current: Current Medications Acetaminophen (Tylenol) 650 mg PO Q4H PRN PRN Reason: Pain (Mild 1-3)/fever Last Admin: 09/20/18 05:53 Dose: 650 mg Hydrocodone Bitart/Acetaminophen ([place] 325-10 Mg) 1 tab PO Q4H PRN PRN Reason: Pain (moderate 4-6) Aspirin (Halfprin) 81 mg PO DAILY [facility] Last Admin: 09/22/18 07:37 Dose: 81 mg Carbamazepine (Tegretol Xr) 400 mg PO BEDTIME [facility] Last Admin: 09/21/18 19:44 Dose: 400 mg Enoxaparin Sodium (Lovenox) 40 mg SUBCUT BEDTIME [facility] Last Admin: 09/21/18 19:41 Dose: 40 mg Hydromorphone HCl (Dilaudid) 1 mg IVPUSH Q2H PRN PRN Reason: Pain (severe 7-10) Last Admin: 09/21/18 23:41 Dose: 1 mg Vancomycin HCl 1,500 mg/ (Sodium Chloride) 280 mls @ 167 mls/hr IV Q12H [facility] Last Admin: 09/22/18 06:25 Dose: 167 mls/hr Piperacillin Sod/Tazobactam (Sod 3.375 gm/ Sodium Chloride) 100 mls @ 25 mls/ hr IV Q8H [facility] Last Admin: 09/22/18 04:22 Dose: 25 mls/hr Promethazine HCl 12.5 mg/ (Sodium Chloride) 100.5 mls @ 400 mls/hr IV QID PRN PRN Reason: Nausea Last Admin: 09/18/18 17:07 Dose: 400 mls/hr Insulin Glargine (Lantus Solostar) 22 units SUBCUT BID [facility] Last Admin: 09/22/18 07:39 Dose: 22 units Insulin Human Lispro (Humalog) 10 unit SUBCUT DAILY [facility] Last Admin: 09/22/18 07:37 Dose: Not Given Insulin Human Lispro (Humalog) 22 unit SUBCUT BID@1200,1800 [facility] Last Admin: 09/21/18 18:10 Dose: 22 units Lisinopril (Prinivil) 5 mg PO DAILY [facility] Last Admin: 09/22/18 07:36 Dose: 5 mg Loratadine (Claritin) 10 mg PO DAILY [facility] Last Admin: 09/22/18 07:37 Dose: 10 mg Ondansetron HCl (Zofran) 4 mg IV Q4H PRN PRN Reason: Nausea/Vomiting Last Admin: 09/22/18 06:27 Dose: 4 mg Promethazine HCl (Phenergan) 25 mg IM Q6H PRN PRN Reason: Nausea Last Admin: 09/22/18 09:49 Dose: 25 mg Senna/Docusate Sodium (Senna Plus) 1 tab PO BID PRN PRN Reason: Constipation Silver Sulfadiazine (Silvadene 1% Cream 50 Gm) 0 gm TOP BID [facility] Last Admin: 09/22/18 07:38 Dose: 1 applic Vancomycin HCl (Pharmacy To Dose - Vancomycin) 1 dose .XX ASDIRECTED [facility] Discontinued Medications Hydrocodone Bitart/Acetaminophen ([place] 325-5 Mg) 1 tab PO Q4H PRN PRN Reason: Pain (moderate 4-6) Last Admin: 09/18/18 08:03 Dose: 1 tab Hydromorphone HCl (Dilaudid) 0.5 mg IVPUSH Q2H PRN PRN Reason: Pain (severe 7-10) Last Admin: 09/18/18 05:24 Dose: 0.5 mg Piperacillin Sod/Tazobactam (Sod 3.375 gm/ Sodium Chloride) 100 mls @ 200 mls/ hr IV ONETIME ONE Stop: 09/17/18 15:14 Last Admin: 09/17/18 15:28 Dose: 200 mls/hr Lactated Ringer's (Ringers, Lactated) 1,000 mls @ 150 mls/hr IV ASDIRECTED [facility] Last Admin: 09/18/18 06:13 Dose: 150 mls/hr Clindamycin Phosphate 900 mg/ (Sodium Chloride) 106 mls @ 200 mls/hr IV Q8H [facility] Last Admin: 09/20/18 03:07 Dose: 200 mls/hr Insulin Human Lispro (Humalog) 22 unit SUBCUT BIDMEALS [facility] Last Admin: 09/20/18 08:50 Dose: 22 units Insulin Human Lispro (Humalog) 5 unit SUBCUT TIDMEALS [facility] Last Admin: 09/19/18 08:11 Dose: Not Given Insulin Human Lispro (Humalog) 15 unit SUBCUT ONETIME ONE Stop: 09/18/18 11:37 Last Admin: 09/18/18 12:12 Dose: 15 units Insulin Human Lispro (Humalog) 15 unit SUBCUT ONETIME ONE Stop: 09/19/18 11:33 Last Admin: 09/19/18 11:35 Dose: 15 units Insulin Human Lispro (Humalog) 10 unit SUBCUT ONETIME ONE Stop: 09/20/18 12:43 Last Admin: 09/20/18 12:55 Dose: 10 units Iopamidol (Isovue-300 (61%)) 100 ml IVPUSH ONETIME ONE Stop: 09/17/18 16:19 Last Admin: 09/17/18 17:06 Dose: 100 ml Magnesium Hydroxide (Milk Of Magnesia) 30 ml PO ONETIME ONE Stop: 09/19/18 08:32 Last Admin: 09/19/18 09:08 Dose: 30 ml Ondansetron HCl (Zofran) 4 mg IV Q6H PRN PRN Reason: Nausea/Vomiting Last Admin: 09/18/18 11:24 Dose: 4 mg Polyethylene Glycol (Miralax) 17 gm PO ONETIME ONE Stop: 09/22/18 05:44 Last Admin: 09/22/18 06:25 Dose: Not Given Senna/Docusate Sodium (Senna Plus) 1 tab PO BID PRN PRN Reason: Constipation Senna/Docusate Sodium (Senna Plus) 1 tab PO BID [facility] Last Admin: 09/20/18 08:46 Dose: 1 tab - Exam General: Alert, Oriented HEENT: Pupils Equal, Pupils Reactive, EOMI, Mucous Membr. Moist/[place] Neck: Supple Lungs: Clear to Auscultation, Normal Respiratory Effort Cardiovascular: Regular Rate, Regular Rhythm GI/Abdominal Exam: Normal Bowel Sounds, Soft, Non-Tender, No Distention ( improved from yesterday) Extremities: Normal Inspection, Normal Range of Motion, Non-Tender, No Pedal Edema, Normal Capillary Refill Peripheral Pulses: 1+: Posterior Tibial (L), Dorsalis Pedis (L), 2+: Posterior Tibial (R), Dorsalis Pedis (R) Skin: Warm, Dry, Intact Wound/Incisions: Healing Well, No Drainage, Erythema Improving, Other Psy/Mental Status: Alert, Normal Affect, Normal Mood - Problem List & Annotations (1) Diabetes mellitus type 1 SNOMED Code(s): 41307364 Code(s): E10.9 - TYPE 1 DIABETES MELLITUS WITHOUT COMPLICATIONS Status: Chronic Current Visit: Yes Qualifiers: Diabetes mellitus complication status: with hyperglycemia Qualified Code(s) : E10.65 - Type 1 diabetes mellitus with hyperglycemia (2) Cellulitis of left lower leg SNOMED Code(s): 087253743 Code(s): L03.116 - CELLULITIS OF LEFT LOWER LIMB Status: Acute Current Visit: No (3) Nausea SNOMED Code(s): 321955599 Code(s): R11.0 - NAUSEA Status: Acute Current Visit: Yes - Problem List Review Problem List Initiated/Reviewed/Updated: Yes - My Orders Last 24 Hours: My Active Orders 09/22/18 09:02 Promethazine [Phenergan] 25 mg IM Q6H PRN 09/22/18 11:03 CBC WITH AUTO DIFF [HEME] Timed COMPREHENSIVE METABOLIC PN,CMP [CHEM] Timed - Assessment Assessment:: 1# Cellulitis and sepsis - Pt continues to improve with medical treatment - Continue with labs - Continue nursing dressing changes - Continue IV antibiotics 2# Type 1 diabetes with hyperglycemia - Sugar levels have decreased since admission - Continue with a diabetic meal plan (pt is very unsatisfied with meal plan and feels the food taste "terrible" "garbage") - Continue to monitor Blood sugars and adjust insulin as needed 3# History of Seizure disorder - no seizure activity -continue with Keppra to prevent seizures -continue to monitor 4# nausea - PRN medication ordered to help with discomfort - Labs are being monitored - If nausea progresses or begins to have abdominal pain will order a CT scan for further evaluation. Pt has had mild distension of the abdomen since admission. This is a normal according to the patient's report. His abdomen is less firm then yesterday and he said he had a bowel movement of normal consistency for him yesterday. - Plan Plan:: The patient continues to improve with IV antibiotics for his left lower leg cellulitis 1. labs ordered for today 2. Continue with Vancomycin and Zosyn 3. Continue BID dressing changes 4. Monitor and control pain 5. Monitor and control nausea. Will order CT scan if symptoms progress or worsen 6. Continue DVT prophylaxis due to decrease in ability to ambulate frequently 7. All questions and concerns addressed
[2018-09-22 12:31] LABS: CHLORIDE,CL 105 mmol/L (98-107); SODIUM,NA 141 mmol/L (136-145)
[2018-09-22 12:36] LABS: ANION GAP 11.9 mmol/L (10-20)
[2018-09-22] MEDS: carBAMazepine 100 MG Cap.ER PO SCH (20:41)
[2018-09-22] MEDS: Enoxaparin 40 MG/0.4 ML Syringe SUBCUT SCH (20:43)
[2018-09-22] MEDS: HYDROmorphone 1 MG/ML Syringe IVPUSH PRN (21:52)
[2018-09-23] MEDS: Piperacillin/Tazobactam 3.375 GM in Sodium Chloride 0.9% 100 ML IV SCH (04:35)
[2018-09-23 07:06] LABS: CHLORIDE,CL 104 mmol/L (98-107); SODIUM,NA 138 mmol/L (136-145)
[2018-09-23 07:08] LABS: ANION GAP 10.6 mmol/L (10-20)
[2018-09-23] MEDS: Aspirin 81 MG Tab.EC PO SCH (08:09)
[2018-09-23] MEDS: Loratadine 10 MG Tab PO SCH (08:10)
[2018-09-23] MEDS: Lisinopril 5 MG Tab PO SCH ×2 (08:10→19:28)
[2018-09-23] MEDS: Insulin Glargine,Human Rec. Analog 100 Units/ML 3 ML Pen SUBCUT SCH ×2 (08:11→19:30)
[2018-09-23] MEDS: Insulin Lispro 100 Unit/ML 3 ML KwikPen SUBCUT SCH ×3 (08:12→18:25)
[2018-09-23] MEDS: Silver Sulfadiazine 1% Crm 50 GM Tube TOP SCH ×2 (08:13→19:29)
[2018-09-23] MEDS ORDERED: HYDROmorphone 1 MG/ML Syringe IVPUSH PRN (08:18)
--- NOTE | 2018-09-23 09:09 | PN ---
Progress Note for TABATHA RUSH Date: 09/23/2018 Room #: VM.205 SUBJECTIVE: This is hospital day #7 on a 62-year-old admitted with severe left lower extremity skin and soft tissue infection and cellulitis. The patient has been on IV vancomycin and Zosyn, now on day #7 and day #8 of antibiotics. His vancomycin trough was 20 this morning, so we are holding that dose. His white count had normalized yesterday. He has been afebrile. He is overall feeling better. He is still using some IV Dilaudid for pain control. Has not used any oral. He is having last dose at 9:00 p.m. last night. He is having bowel movements. He is not having any nausea. His cough has improved. OBJECTIVE: Vital Signs: Objectively, his temperature is 98.7, pulse 80, blood pressure 163/85, respiratory rate 20, and O2 of 95% on room air. General: He is in no acute distress. Heart: Regular rate and rhythm. S1, S2 without murmur. Lungs: Lung sounds are clear to auscultation bilaterally without crackles or wheezes. Abdomen: Mildly distended with positive bowel sounds. It is nontender. Extremities: Warm and dry. He has no swelling on the left or the right lower extremity. The left extremity has trace edema, but a little bit more above the [place] wraps. The redness has significantly improved. He still has some scabbing there and tenderness on the anterior haider, but no abscess noted. His dorsal pedis pulse is 2+. Mental Status: He is alert. He is orientated x3. LABORATORY DATA: Blood pressure has been running higher over the past several days. He is on lisinopril at home. Blood sugars were down under 200 yesterday. This morning, it was 174. Sodium 138, potassium 3.6, chloride 104, bicarb 27, BUN 8, and creatinine 1.1. ASSESSMENT: 1. Sepsis with severe skin and soft tissue infection, cellulitis to the left lower extremity, probably due to strep. Culture just showed coagulase- negative Staph. At this point, we will discontinue vancomycin and Zosyn and place him on Keflex. Likely, we will treat for a 14-day course. 2. Type 1 diabetes. Blood sugars improved, probably had hyperglycemia due to infection. We will continue insulin. 3. Essential hypertension with elevated blood pressure. We will increase lisinopril to 10 mg daily. 4. History of seizure disorder. This has been stable. 5. Elevated LFTs. These were trending down, did go up to slightly probably due to his acute infection. We will monitor. Repeat lab work again as an outpatient. PLAN: At this point, the patient is to continue acute cares. He has been up. He has been working with therapy and the walker. He does need dedicated wound cares and he is accepting for home health on discharge. We will take him off the IV Dilaudid which he has used several doses per day and see if his pain is controlled with oral hydrocodone. Anticipate that he will be able to be discharged home later this evening or as soon as tomorrow. The patient is agreeable with this plan. YANNA: 09/23/2018 08:28:27 MODL: 09/23/2018 09:02:54 /[id number]
[2018-09-23] MEDS: SODIUM CHLORIDE 0.9% IV SCH (11:33)
[2018-09-23] MEDS: VANCOMYCIN IV SCH (11:33)
[2018-09-23] MEDS: Cephalexin 500 MG Cap PO SCH ×2 (12:35→18:24)
[2018-09-23] MEDS: Acetaminophen 325 MG Tab PO PRN (12:38)
[2018-09-23] MEDS: carBAMazepine 100 MG Cap.ER PO SCH (19:28)
[2018-09-23] MEDS: Enoxaparin 40 MG/0.4 ML Syringe SUBCUT SCH (19:29)
[2018-09-24] MEDS: Cephalexin 500 MG Cap PO SCH ×2 (00:15→06:02)
[2018-09-24] MEDS: Acetaminophen 325 MG Tab PO PRN (00:15)
[2018-09-24] MEDS: Aspirin 81 MG Tab.EC PO SCH (07:35)
[2018-09-24] MEDS: Insulin Glargine,Human Rec. Analog 100 Units/ML 3 ML Pen SUBCUT SCH (07:36)
[2018-09-24] MEDS: Lisinopril 5 MG Tab PO SCH (07:36)
[2018-09-24] MEDS: Loratadine 10 MG Tab PO SCH (07:36)
[2018-09-24] MEDS: Insulin Lispro 100 Unit/ML 3 ML KwikPen SUBCUT SCH (07:37)
[2018-09-24] MEDS: Silver Sulfadiazine 1% Crm 50 GM Tube TOP SCH (07:37)
[2018-09-24] MEDS ORDERED: Ondansetron 4 MG Tab.DIS PO ONE (07:38)
--- NOTE | 2018-09-24 09:15 | CR ---
[id number] RAD/RAD Abd Flat and Upright 2V EXAM: RAD Abd Flat and Upright 2V INDICATION: ABDOMINAL PAIN, NAUSEA. COMPARISON: None. DISCUSSION: Unobstructed bowel gas pattern. No radiographically evident pneumoperitoneum. Large amount of retained stool within the colon. IMPRESSION: Large amount of retained stool within the colon. No evidence of obstruction. Davie Fonseca DO 09/24/18 0913 Thank you for allowing us to participate in the care of your patient.
[2018-09-24] MEDS ORDERED: Magnesium Hydroxide 400 MG/5 ML Susp 30 ML Cup PO ONE (09:19)
[2018-09-24 11:02] VITALS: BP 157/91
--- NOTE | 2018-09-24 22:16 | PCM.DCSUM1 ---
Discharge Summary - Hospital Course Free Text/Narrative:: Patient admitted after returning to the clinic on 09/17 initially seen on 09/16 with a 1 week of flu like symptoms and severe left lower leg pain diagnosed with cellulitis and given IV rocephin. He had fevers but lactic was normal on admit. He had a previous lactic that was mildly elevated on the previous day. He had WBC 14,000 was placed on IV Vanco and Zosyn and CT done did not show Necrotizing fasciitis. Clindamycin was added on 09/18 and his symptoms slowly improved so this was discontinued. He continued to spike Fevers and ID was contacted who felt this very likely was a severe reaction to strep. He had some drainage due to the swelling and blisters/superficial skin wounds. He had pain to palpation but this nearly resolved by discharge. His WBC count improved and Fevers resolved. He was getting IV dilaudid for pain control around 4 mg per day but this was stopped on 09/23 and he did not take any oral Hydrocodone. Would cares with sulfazaladine were used and the leg was elevated and wrapped. He refused an ultrasound to rule out DVT. He is a nonsmoker with no hx of DVT. He also had elevated blood pressure during his stay but it was felt to be related due to pain and his infection. Blood pressure was slightly improved on discharge. His lisinopril was increased to 5 mg BID temporarily. He also has type 1 diabetes and had hyperglycemia due to infection this improved with insulin adjustments and resolution of his infection. He had nausea, abdominal distention, and constipation. He had some milk of magnesia earlier in his stay and then had diarrhea. He had laxatives orders and on the final day we did an x-ray that showed stool. He had a BM after another dose of milk of magnesia but reports his stools were loose like he was concerned he had some harder stools he couldn't get out but he refused a manual check and suppository and wanted to try moving things at home. He had not had a BM for several days prior to admit. He was eating yogurt and plans to continue that at home. Education and discussion was provided about c. diff due to his extensive ABX use getting a full 7 days of IV antibiotics and changing over to Keflex on 09/23 to complete a 14 days course of antibiotics. Liver enzymes were elevated during his stay but they were trending down before a mild increase at the time of discharge. The elevation was felt to be due to his acute illness. He refuses to take statin medications. - Discharge Data Discharge Date: 09/24/18 Discharge Disposition: Home, W Home Health Agency 06 Condition: Good - Discharge Diagnosis/Problem(s) (1) Seizure SNOMED Code(s): 78985249 ICD Code: R56.9 - UNSPECIFIED CONVULSIONS Status: Chronic Priority: Low (2) Essential hypertension SNOMED Code(s): 92592747 ICD Code: I10 - ESSENTIAL (PRIMARY) HYPERTENSION Status: Chronic Priority : High (3) Constipation SNOMED Code(s): 76406562 ICD Code: K59.00 - CONSTIPATION, UNSPECIFIED Status: Acute Priority: High Qualifiers: Constipation type: unspecified constipation type Qualified Code(s): K59.00 - Constipation, unspecified (4) Elevated LFTs SNOMED Code(s): 743938737, 446869417 ICD Code: R94.5 - ABNORMAL RESULTS OF LIVER FUNCTION STUDIES Status: Acute Priority: High (5) Cellulitis of left lower leg SNOMED Code(s): 378857184 ICD Code: L03.116 - CELLULITIS OF LEFT LOWER LIMB Status: Acute Priority : High (6) Nausea SNOMED Code(s): 941660408 ICD Code: R11.0 - NAUSEA Status: Acute (7) Diabetes mellitus type 1 SNOMED Code(s): 54994149 ICD Code: E10.9 - TYPE 1 DIABETES MELLITUS WITHOUT COMPLICATIONS Status: Acute Qualifiers: Diabetes mellitus complication status: with hyperglycemia Qualified Code(s) : E10.65 - Type 1 diabetes mellitus with hyperglycemia - Patient Summary/Data Consults: Consultations 09/19/18 08:54 PT Evaluation and Treatment [CONS] Routine 09/23/18 08:19 OT Evaluation and Treatment [CONS] Routine 09/23/18 17:04 Consult to Case Management/Transit Bus Driver [CONS] Routine - Patient Instructions Diet: Usual Diet as Tolerated Activity: As Tolerated Driving: Do Not Drive Showering/Bathing: May Shower Notify Provider of: Fever, Increased Pain, Nausea and/or Vomiting Other/Special Instructions: Try a dulcolax at home today 10 mg to get your bowels moving more. Keflex 4 x a day for another 3 days. Home health for dressing changes tomorrow and then every other day with the sulfasalazine cream and telfa and then wrap with cling and michael wrap. Lab work priot to his visit on 10/01 can be drawn by home health CMP, CBC, A1c. Take tyleno 500 mg 1-2 tabs up to 3 x a day for pain. Continue with the yogurt you can get diarrhea with antibiotic. You should do the yogurt twice daily for 2 weeks. Take senna twice daily if needed for constipation - Discharge Plan *PRESCRIPTION DRUG MONITORING PROGRAM REVIEWED*: Not Applicable *COPY OF PRESCRIPTION DRUG MONITORING REPORT IN PATIENT ADINA: Not Applicable Prescriptions/Med Rec: Acetaminophen/HYDROcodone [[place] 325-10 MG] 1 tab PO Q4H PRN #10 tablet PRN Reason: Pain (Moderate 4-6) cephALEXin [Keflex] 500 mg PO Q6H #12 cap Ondansetron [Zofran ODT] 4 mg PO Q6H PRN #10 tab.dis PRN Reason: Nausea Silver Sulfadiazine [Silvadene 1% Cream 50 GM] 1 gm TOP BID #1 tube Home Medications: Home Meds Insulin Glarg,Human.Rec.Analog [LantUS] 22 units SQ BID 03/18/15 [History] Insulin Lispro [Humalog] 22 units SUBCUT BID 03/18/15 [History] Lisinopril [Prinivil] 5 mg PO DAILY 03/18/15 [History] carBAMazepine [Carbamazepine ER] 400 mg PO DAILY 03/18/15 [History] Aspirin [Ecotrin] 81 mg PO DAILY 09/17/18 [History] Cetirizine [ZyrTEC] 1 tab PO DAILY 09/17/18 [History] Acetaminophen/HYDROcodone [[place] 325-10 MG] 1 tab PO Q4H PRN #10 tablet [Rx] Silver Sulfadiazine [Silvadene 1% Cream 50 GM] 1 gm TOP BID #1 tube 09/23/18 [Rx ] cephALEXin [Keflex] 500 mg PO Q6H #12 cap 09/23/18 [Rx] Ondansetron [Zofran ODT] 4 mg PO Q6H PRN #10 tab.dis 09/24/18 [Rx] Patient Handouts: Cellulitis, Adult, [id number] Referrals: Dinesh,Hanh Talia, DO [Primary Care Provider] - (The clinic will call you will an appt. date and time.) - Discharge Summary/Plan Comment DC Time >30 min.: Yes - General Info Date of Service: 09/24/18 Functional Status: Reports: Pain Controlled, Tolerating Diet (ate less today due to constipation and nausea ), Ambulating (worked with PT used a walker but ambulation is improving ), Incentive Spirometry - Review of Systems General: Reports: No Symptoms Pulmonary: Reports: Cough (cough during entire stay it has not worsened, cxr was ok). Denies: Shortness of Breath Cardiovascular: Reports: No Symptoms. Denies: Chest Pain Gastrointestinal: Reports: Constipation, Decreased Appetite, Diarrhea, Nausea. Denies: Abdominal Pain, Vomiting Genitourinary: Reports: No Symptoms Musculoskeletal: Reports: Leg Pain Skin: Reports: Rash Neurological: Reports: Numbness (very mild neuropathy ) Psychiatric: Reports: No Symptoms - Patient Data Vitals - Most Recent: Last Vital Signs Temp 97.5 F 09/24/18 10:00 Pulse 71 09/24/18 10:00 Resp 16 09/24/18 10:00 BP 157/91 H 09/24/18 10:00 Pulse Ox 91 L 09/24/18 10:00 Weight - Most Recent: 101.69 kg I&O - Last 24 hours: Intake & Output 09/24/18 09/24/18 09/24/18 06:59 14:59 22:59 Intake Total 400 120 Balance 400 120 Lab Results - Last 24 hrs: Laboratory Results - last 24 hr 09/24/18 09/24/18 Range/Units 05:59 11:11 POC Glucose 72 L 173 H (74-106) mg/dL Med Orders - Current: Current Medications Discontinued Medications Acetaminophen (Tylenol) 650 mg PO Q4H PRN PRN Reason: Pain (Mild 1-3)/fever Last Admin: 09/24/18 00:15 Dose: 650 mg Hydrocodone Bitart/Acetaminophen ([place] 325-5 Mg) 1 tab PO Q4H PRN PRN Reason: Pain (moderate 4-6) Last Admin: 09/18/18 08:03 Dose: 1 tab Hydrocodone Bitart/Acetaminophen ([place] 325-10 Mg) 1 tab PO Q4H PRN PRN Reason: Pain (moderate 4-6) Aspirin (Halfprin) 81 mg PO DAILY RUDI Last Admin: 09/24/18 07:35 Dose: 81 mg Carbamazepine (Tegretol Xr) 400 mg PO BEDTIME [facility] Last Admin: 09/23/18 19:28 Dose: 400 mg Cephalexin (Keflex) 500 mg PO Q6H [facility] Last Admin: 09/24/18 06:02 Dose: 500 mg Enoxaparin Sodium (Lovenox) 40 mg SUBCUT BEDTIME [facility] Last Admin: 09/23/18 19:29 Dose: 40 mg Hydromorphone HCl (Dilaudid) 0.5 mg IVPUSH Q2H PRN PRN Reason: Pain (severe 7-10) Last Admin: 09/18/18 05:24 Dose: 0.5 mg Hydromorphone HCl (Dilaudid) 1 mg IVPUSH Q2H PRN PRN Reason: Pain (severe 7-10) Last Admin: 09/22/18 21:52 Dose: 1 mg Hydromorphone HCl (Dilaudid) 1 mg IVPUSH Q8H PRN PRN Reason: Pain (severe 7-10) Piperacillin Sod/Tazobactam (Sod 3.375 gm/ Sodium Chloride) 100 mls @ 200 mls/ hr IV ONETIME ONE Stop: 09/17/18 15:14 Last Admin: 09/17/18 15:28 Dose: 200 mls/hr Vancomycin HCl 1,500 mg/ (Sodium Chloride) 280 mls @ 167 mls/hr IV Q12H [facility] Last Admin: 09/23/18 11:33 Dose: Not Given Piperacillin Sod/Tazobactam (Sod 3.375 gm/ Sodium Chloride) 100 mls @ 25 mls/ hr IV Q8H [facility] Last Admin: 09/23/18 04:35 Dose: 25 mls/hr Lactated Ringer's (Ringers, Lactated) 1,000 mls @ 150 mls/hr IV ASDIRECTED [facility] Last Admin: 09/18/18 06:13 Dose: 150 mls/hr Clindamycin Phosphate 900 mg/ (Sodium Chloride) 106 mls @ 200 mls/hr IV Q8H [facility] Last Admin: 09/20/18 03:07 Dose: 200 mls/hr Promethazine HCl 12.5 mg/ (Sodium Chloride) 100.5 mls @ 400 mls/hr IV QID PRN PRN Reason: Nausea Last Admin: 09/18/18 17:07 Dose: 400 mls/hr Insulin Glargine (Lantus Solostar) 22 units SUBCUT BID [facility] Last Admin: 09/24/18 07:36 Dose: 22 units Insulin Human Lispro (Humalog) 22 unit SUBCUT BIDMEALS [facility] Last Admin: 09/20/18 08:50 Dose: 22 units Insulin Human Lispro (Humalog) 5 unit SUBCUT TIDMEALS [facility] Last Admin: 09/19/18 08:11 Dose: Not Given Insulin Human Lispro (Humalog) 15 unit SUBCUT ONETIME ONE Stop: 09/18/18 11:37 Last Admin: 09/18/18 12:12 Dose: 15 units Insulin Human Lispro (Humalog) 15 unit SUBCUT ONETIME ONE Stop: 09/19/18 11:33 Last Admin: 09/19/18 11:35 Dose: 15 units Insulin Human Lispro (Humalog) 10 unit SUBCUT ONETIME ONE Stop: 09/20/18 12:43 Last Admin: 09/20/18 12:55 Dose: 10 units Insulin Human Lispro (Humalog) 10 unit SUBCUT DAILY [facility] Last Admin: 09/24/18 07:37 Dose: Not Given Insulin Human Lispro (Humalog) 22 unit SUBCUT BID@1200,1800 [facility] Last Admin: 09/23/18 18:25 Dose: 22 units Iopamidol (Isovue-300 (61%)) 100 ml IVPUSH ONETIME ONE Stop: 09/17/18 16:19 Last Admin: 09/17/18 17:06 Dose: 100 ml Lisinopril (Prinivil) 5 mg PO DAILY [facility] Last Admin: 09/23/18 08:10 Dose: 5 mg Lisinopril (Prinivil) 5 mg PO BID [facility] Last Admin: 09/24/18 07:36 Dose: 5 mg Loratadine (Claritin) 10 mg PO DAILY [facility] Last Admin: 09/24/18 07:36 Dose: 10 mg Magnesium Hydroxide (Milk Of Magnesia) 30 ml PO ONETIME ONE Stop: 09/19/18 08:32 Last Admin: 09/19/18 09:08 Dose: 30 ml Magnesium Hydroxide (Milk Of Magnesia) 30 ml PO ONETIME ONE Stop: 09/24/18 09:20 Last Admin: 09/24/18 09:32 Dose: 30 ml Ondansetron HCl (Zofran) 4 mg IV Q6H PRN PRN Reason: Nausea/Vomiting Last Admin: 09/18/18 11:24 Dose: 4 mg Ondansetron HCl (Zofran) 4 mg IV Q4H PRN PRN Reason: Nausea/Vomiting Last Admin: 09/22/18 06:27 Dose: 4 mg Ondansetron HCl (Zofran Odt) 4 mg PO ONETIME ONE Stop: 09/24/18 07:39 Last Admin: 09/24/18 07:44 Dose: 4 mg Polyethylene Glycol (Miralax) 17 gm PO ONETIME ONE Stop: 09/22/18 05:44 Last Admin: 09/22/18 06:25 Dose: Not Given Promethazine HCl (Phenergan) 25 mg IM Q6H PRN PRN Reason: Nausea Last Admin: 09/22/18 09:49 Dose: 25 mg Senna/Docusate Sodium (Senna Plus) 1 tab PO BID PRN PRN Reason: Constipation Senna/Docusate Sodium (Senna Plus) 1 tab PO BID [facility] Last Admin: 09/20/18 08:46 Dose: 1 tab Senna/Docusate Sodium (Senna Plus) 1 tab PO BID PRN PRN Reason: Constipation Silver Sulfadiazine (Silvadene 1% Cream 50 Gm) 0 gm TOP BID [facility] Last Admin: 09/24/18 07:37 Dose: 1 applic - Exam General: Reports: Alert, Oriented HEENT: Reports: Pupils Equal, Pupils Reactive, EOMI, Mucous Membr. Moist/[place] Neck: Reports: Supple Lungs: Reports: Clear to Auscultation, Normal Respiratory Effort Cardiovascular: Reports: Regular Rate, Regular Rhythm GI/Abdominal Exam: Normal Bowel Sounds, Distended, Rebound. No: Tender Extremities: Pedal Edema (left leg still with trace edema, wraps in place with drainage over the left lateral calf for a superficial skin tear type lesion, blister on his foot is improving, no deep wounds) Skin: Reports: Warm, Dry Wound/Incisions: Reports: Healing Well, Drainage, Erythema Improving Neurological: Reports: No New Focal Deficit Psy/Mental Status: Reports: Alert, Normal Affect, Normal Mood
--- NOTE | 2018-09-25 22:39 | PCM.SN ---
- Free Text/Narrative Note: Addendum to home health Face to Face visit occurred on 09/24/[address] Montiel The primary reason for home health is nursing for wound care for a severe left lower leg infection Nursing is needed to instruct and assist with wound cares and dressing changes. Also to monitor for further signs of infection. Patient also has Type 1 Diabetes which affects the healing in his leg. He is homebound due to impaired mobility from the leg infection and may also benefit from PT. Absences from home are infrequent and require taxing effort. I will periodically review this plan of care.
== END 2018-09-24 11:30 | disposition home health service (06) | DRG 872 ==
LOC: VM.MS 14:21
PROVIDERS: ADMIT Family Medicine; ATTEND Internal Medicine
DX: A41.9 Sepsis, unspecified organism (principal); L03.116 Cellulitis of left lower limb; E10.628 Type 1 diabetes mellitus with other skin complications; E10.65 Type 1 diabetes mellitus with hyperglycemia; G40.909 Epilepsy, unspecified, not intractable, without status epilepticus; K59.00 Constipation, unspecified; E10.42 Type 1 diabetes mellitus with diabetic polyneuropathy; F32.9 Major depressive disorder, single episode, unspecified; I10 Essential (primary) hypertension; J30.9 Allergic rhinitis, unspecified; G89.29 Other chronic pain; M54.9 Dorsalgia, unspecified; E66.9 Obesity, unspecified; Z68.30 Body mass index [BMI] 30.0-30.9, adult; Z98.1 Arthrodesis status; Z79.4 Long term (current) use of insulin; Z79.82 Long term (current) use of aspirin; Z79.899 Other long term (current) drug therapy
CPT/HCPCS: 36415; 71045; 73701; 74019; 80048; 80053; 80202; 82550; 82962; 83605; 85025; 85610; 85652; 86140; 87040; 87070; 97116-GP; 97162-GP; A9270-GY; J1170; J1650; J1815-GY; J2405; J2543; J2550; J3370; J3490; J7050; J7120; Q9967